=== PATIENT | female | born 1995 | race Caucasian/White ===

== ENCOUNTER 2024-11-18 23:28 | Emergency (ER) | payer BC ==
[~2024-11-18] VITALS: Ht 162.6 cm; Wt 60.0 kg
[2024-11-18] MEDS ORDERED: LACTATED RINGER'S 1,000 ML IV ONE (23:45)
[2024-11-19] MEDS ORDERED: LORazepam 1 MG HOME.PACK PO ONE ×2 (00:15→02:52)
[2024-11-19 03:06] VITALS: BP 110/62
--- NOTE | 2024-11-19 17:50 | EKG ---
[facility] [address] [facility] [place], [place] [address] Signed Sinus tachycardia Otherwise normal ECG No previous ECGs available Confirmed by Rolan Del Valle DO ([id number]) on 11/19/2024 5:50:39 PM Electronically Signed By: ROLAN DEL VALLE DO 11/19/24 1750 PATIENT NAME: MALIK BILL Electrocardiogram DATE OF : [birth year] PHYSICIAN: ROLAN DEL VALLE DO REPORT #: [id number] REPORT IS CONFIDENTIAL AND NOT TO BE RELEASED WITHOUT AUTHORIZATION
== END 2024-11-19 03:07 | disposition home or self-care (01) ==
LOC: ED 23:28
DX: F41.9 Anxiety disorder, unspecified (principal); R55 Syncope and collapse
CPT/HCPCS: 93005; 93010; 96360; 99284-25; J7121